=== PATIENT | female | born 1980 | race Two or more races ===

== ENCOUNTER 2017-10-08 14:22 | Emergency (ER) | payer OTHER | END 2017-10-08 15:57 | disposition home or self-care (01) | LOC: ER 14:22 | DX: J02.9 Acute pharyngitis, unspecified (principal) | CPT/HCPCS: 99283 ==

== ENCOUNTER 2020-01-21 06:10 | Emergency (ER) | payer BC, OTHER ==
[~2020-01-21] VITALS: Ht 152.4 cm; Wt 55.1 kg
[~2020-01-21 06:10] MED LIST: AMOX500C PO
[2020-01-21 06:38] LABS: BASO # 0.1 x10^3/uL (0.0-0.2); BASO % 1 % (0-3); EOS # 0.1 x10^3/uL (0.0-0.7); EOS % 1 % (0-3); HEMATOCRIT 38.8 % (36.0-47.0); LYMPH # 2.3 x10^3/uL (1.0-4.8); LYMPH % 28 % (24-48); MEAN CORPUSCULAR HEMOGLOBIN 30 pg (25-35); MEAN CORPUSCULAR HGB CONC 33 g/dL (31-37); MEAN CORPUSCULAR VOLUME 91 fL (79-100); MONO # 0.6 x10^3/uL (0.0-1.1); MONO % 7 % (0-9); NEUT % 63 % (31-73); PLATELET COUNT 201 x10^3/uL (140-400); RED BLOOD COUNT 4.27 x10^6/uL (3.50-5.40); RED CELL DISTRIBUTION WIDTH 13.6 % (11.5-14.5); WHITE BLOOD COUNT 7.9 x10^3/uL (4.0-11.0)
[2020-01-21 06:53] LABS: ALBUMIN/GLOBULIN RATIO 1.1 (1.0-1.7); CALCIUM 8.3 mg/dL (8.5-10.1); GFR 61.1; TOTAL BILIRUBIN 0.4 mg/dL (0.2-1.0); TOTAL PROTEIN 7.7 g/dL (6.4-8.2)
[2020-01-21 06:57] LABS: BILIRUBIN,URINE NEGATIVE (NEG); CLARITY,URINE CLEAR; COLOR,URINE YELLOW; NITRITE,URINE NEGATIVE (NEG); PH,URINE 5.5 (<5.0-8.0); PROTEIN,URINE NEGATIVE (NEG-TRACE); UROBILINOGEN,URINE 0.2 mg/dL (0.2 mg/dL)
[2020-01-21 06:58] LABS: PREG TEST PT QUAL NEGATIVE (NEG)
[2020-01-21 07:06] LABS: PROTHROMBIN TIME PATIENT 14.1 SEC (11.7-14.0)
--- NOTE | 2020-01-21 07:07 | PHYS DOC ---
Past Medical History Past Medical History: No Pertinent History Past Surgical History: No Surgical History Smoking Status: Never Smoker Alcohol Use: None Drug Use: None General Adult EDM: Chief Complaint: HEMATEMESIS/VOMITING BLOOD HPI: HPI: Patient is a 39 year old female who presents with hemoptysis. Patient states that this morning she woke up and ate rice and pork. She suddenly had bloody vomit. This happened 1 time. She is never had this before. She denies any trauma, recent illness, alcohol abuse. She now feels like there is something in her neck. She did not feel like this prior to vomiting. She denies any abdominal pain, diarrhea, melena, syncope, shortness of breath, chest pain. Review of Systems: Review of Systems: General: Denies fever, chills, sweats, fatigue Eyes: Denies drainage, blurred vision HENT: Denies rhinorrhea, sore throat Respiratory: Denies cough, shortness of breath, wheezing Cardiac: Denies edema, palpitations, chest pain GI: Denies abdominal pain, nausea. Reports hemoptysis MSK: Denies back pain, neck pain Skin: Denies rash, jaundice Neuro: Denies headache, dizziness Psychiatric: Denies SI/HI Heart Score: Risk Factors: Risk Factors: DM, Current or recent (<one month) smoker, HTN, HLP, family history of CAD, obesity. Risk Scores: Score 0 - 3: 2.5% MACE over next 6 weeks - Discharge Home Score 4 - 6: 20.3% MACE over next 6 weeks - Admit for Clinical Observation Score 7 - 10: 72.7% MACE over next 6 weeks - Early Invasive Strategies Allergies: Allergies: Allergies Coded Allergies Type Severity Reaction Last Updated Verified No Known Drug Allergies 01/21/20 No Physical Exam: PE: Constitutional: Well developed, well nourished, Cooperative, NAD, non-toxic appearing HEENT: Normocephalic, atraumatic, oropharynx moist, EOMI, PERRL, no drainage from eyes, normal conjunctiva Neck: Supple, normal range of motion, no stridor Cardiovascular: RRR, 2+ radial pulses bilaterally, no edema Respiratory: CTA bilaterally, no respiratory distress, no wheezing/crackles Abdomen: Soft, nontender, nondistended, no masses Skin: Warm, dry, intact Extremities: No obvious deformities Neurologic: Alert and Oriented x3, motor and sensory function grossly normal, no focal deficits Psychologic: Normal affect, normal judgment, normal mood. No SI/HI Current Patient Data: Labs: Laboratory Tests Test 01/21/20 06:33 01/21/20 06:49 White Blood Count 7.9 x10^3/uL (4.0-11.0) Red Blood Count 4.27 x10^6/uL (3.50-5.40) Hemoglobin 13.0 g/dL (12.0-15.5) Hematocrit 38.8 % (36.0-47.0) Mean Corpuscular Volume 91 fL (79-100) Mean Corpuscular Hemoglobin 30 pg (25-35) Mean Corpuscular Hemoglobin Concent 33 g/dL (31-37) Red Cell Distribution Width 13.6 % (11.5-14.5) Platelet Count 201 x10^3/uL (140-400) Neutrophils (%) (Auto) 63 % (31-73) Lymphocytes (%) (Auto) 28 % (24-48) Monocytes (%) (Auto) 7 % (0-9) Eosinophils (%) (Auto) 1 % (0-3) Basophils (%) (Auto) 1 % (0-3) Neutrophils # (Auto) 5.0 x10^3/uL (1.8-7.7) Lymphocytes # (Auto) 2.3 x10^3/uL (1.0-4.8) Monocytes # (Auto) 0.6 x10^3/uL (0.0-1.1) Eosinophils # (Auto) 0.1 x10^3/uL (0.0-0.7) Basophils # (Auto) 0.1 x10^3/uL (0.0-0.2) Sodium Level 142 mmol/L (136-145) Potassium Level 3.0 mmol/L (3.5-5.1) L Chloride Level 104 mmol/L (98-107) Carbon Dioxide Level 30 mmol/L (21-32) Anion Gap 8 (6-14) Blood Urea Nitrogen 16 mg/dL (7-20) Creatinine 1.0 mg/dL (0.6-1.0) Estimated GFR (Cockcroft-Gault) 61.1 BUN/Creatinine Ratio 16 (6-20) Glucose Level 116 mg/dL (70-99) H Calcium Level 8.3 mg/dL (8.5-10.1) L Total Bilirubin 0.4 mg/dL (0.2-1.0) Aspartate Amino Transferase (AST) 15 U/L (15-37) Alanine Aminotransferase (ALT) 23 U/L (14-59) Alkaline Phosphatase 76 U/L (46-116) Total Protein 7.7 g/dL (6.4-8.2) Albumin 4.0 g/dL (3.4-5.0) Albumin/Globulin Ratio 1.1 (1.0-1.7) Lipase 127 U/L (73-393) Serum Test, Qualitative Negative (NEG) Ethyl Alcohol Level < 10 mg/dL (0-10) POC Urine HCG, Qualitative Hcg negative (Negative) Laboratory Tests 01/21/20 06:33 Laboratory Tests 01/21/20 06:33 Vital Signs: Vital Signs Date Time Temp Pulse Resp B/P (MAP) Pulse Ox O2 Delivery O2 Flow Rate FiO2 01/21/20 06:21 99.1 78 14 115/66 (82) 100 Room Air 99.1 EKG: EKG: [] Radiology/Procedures: Radiology/Procedures: [] Course & Med Decision Making: Course & Med Decision Making Pertinent Labs and Imaging studies reviewed. (See chart for details) Patient is a 39-year-old previously healthy well-appearing female who presents to the emergency room after having a single episode of hemoptysis. Patient does not have an alcohol abuse history making varices unlikely. She does have a globus feeling in her throat making it possible that she has a foreign body which could have caused the vomiting. X-ray will be ordered. Basic labs including CBC, BMP, coags, lipase, test will be ordered to help determine other possible causes of her hemoptysis. At time of examination patient is very well-appearing with benign exam. She does not have any stridor, she is not vomiting, and she does not have any distress. XR was negative for foreign body. CT neck and abdomen were ordered and were normal. Patient did not have any further vomiting in the ED. She likely has gastritis or a small junior cooper tear. She was given a GI cocktail which she tolerated well. Will place her on Pepcid. Patient's test results and vitals while in the ED were fully reviewed and discussed with the patient. Patient is stable and at this time does not need admission to the hospital. We have discussed strict return precautions and the importance of following up with their Primary Care Physician. Patient stated understanding and was given an opportunity to ask any questions. [place] Disclaimer: Dragon Disclaimer: This electronic medical record was generated, in whole or in part, using a voice recognition dictation system. Departure Departure Impression: Primary Impression: Hematemesis of unknown cause Disposition: 01 HOME, SELF-CARE Referrals: NO PCP (PCP) Scripts Famotidine (PEPCID) 20 Mg Tablet 20 MG PO BID, #30 TAB Prov: PREET SR MD 01/21/20 PREET SR MD Jan 21, 2020 07:07
[2020-01-21 07:12] LABS: BACTERIA,URINE FEW /HPF (0-FEW); RBC,URINE 0 /HPF (0-2); SQUAMOUS EPITHELIAL CELL,UR MOD /LPF
--- NOTE | 2020-01-21 08:00 | RAD ---
Study: CR NECK SOFT TISSUE Indication: Hematemesis. Foreign body evaluation. Comparison: None. Findings: Mineralization in the region of the thyroid cartilage favored anatomic as opposed to a retained foreign body. The visualized airway is normally aerated. Normal thickness of the epiglottis. Unremarkable prevertebral soft tissues. The adequately assessed osseous structures are grossly intact. Impression: No radiographic evidence for a retained foreign body within the visualized airway. Electronically signed by: JASE LOPEZ MD (01/21/2020 7:57 AM) [id number]
[2020-01-21] MEDS ORDERED: IOHEXOL 350 MG/ML 100 ML VIAL. IV ONE (08:30)
[2020-01-21] MEDS ORDERED: CONTRAST GIVEN. MC PRN (08:45)
--- NOTE | 2020-01-21 09:26 | RAD ---
CT study of the soft tissues of the neck without contrast Clinical indications: Hematemesis. Globus feeling in neck. TECHNIQUE: Noncontrast helical CT scanning of the soft tissues of the neck was performed. Multiplanar 2-D reconstructions were generated. PQRS compliance Statement One or more of the following individualized dose reduction techniques were utilized for this study: 1. Automated exposure control 2. Adjustment of the mA and/or kV according to patient size 3. Use of iterative reconstruction technique COMPARISON: No previous CT available. FINDINGS: No enlarged cervical lymphadenopathy is evident. No soft tissue mass is seen. No soft tissue abscess is seen. No prevertebral soft tissue swelling or parapharyngeal soft tissue thickening is seen. The thyroid gland is unremarkable. The true and false vocal cords and epiglottis and aryepiglottic folds and preepiglottic fat space are normal. The parotid and submandibular salivary glands are unremarkable. No radiopaque foreign body is evident. No opacification or air-fluid levels of the paranasal sinuses/middle ear cavities/mastoid sinuses is seen. There is a round well-defined radiolucent lesion of the right side of the posterior aspect of the T1 vertebral body with sclerotic borders. This most likely represents a cyst or hemangioma. Dental caries is evident. No lung apical infiltrate is seen. IMPRESSION: No soft tissue mass or enlarged cervical lymphadenopathy is evident. Dental caries. Electronically signed by: Jus Tierney MD (01/21/2020 9:23 AM) [id number]
--- NOTE | 2020-01-21 09:29 | RAD ---
PQRS Compliance Statement: One or more of the following individualized dose reduction techniques were utilized for this examination: 1. Automated exposure control 2. Adjustment of the mA and/or kV according to patient size 3. Use of iterative reconstruction technique CT abdomen/pelvis with contrast 01/21/2020 8:11 AM INDICATION: New onset hematemesis COMPARISON: None available TECHNIQUE: Multiple axial CT images of the abdomen and pelvis were obtained after the intravenous administration of nonionic contrast. Maximum intensity projection images are provided. Coronal and sagittal reformats are provided. FINDINGS: Visualized portions of the lung bases are clear. Heart size is within normal limits. No suspicious hepatic masses are identified. Liver is homogeneous in enhancement. Spleen, bilateral adrenal glands, and pancreas are normal in appearance. Gallbladder is present without adjacent inflammatory changes. The abdominal aorta is normal in course and caliber. Calcified duodenal artery is normal in caliber. No suspicious bone formation is identified involving the gastric antrum or first portion of the duodenum. There are no pathologically enlarged lymph nodes in the abdomen and pelvis. There is no abdominal free fluid. There is no free intraperitoneal air. Small and large bowel are normal in caliber. There is no evidence for bowel obstruction. There are no pericolonic inflammatory changes. A normal, nondilated appendix is visualized without adjacent inflammatory changes. No definite findings to suggest acute gastrointestinal hemorrhage in the upper gastric intestinal tract. No definite CT findings to suggest angiodysplasia. The kidneys enhance symmetrically. There is no suspicious renal mass. There is no hydronephrosis. There are no suspected calculi within the kidneys, ureters or urinary bladder. IUD is present within the uterus. Uterus and adnexa are otherwise normal by CT. Urinary bladder is within normal limits given degree of distention. No suspicious osseous abnormality is identified. IMPRESSION: 1. No evidence for bowel obstruction or inflammation, specifically involving the upper gastrointestinal tract. 2. Abdominal aorta is normal in course and caliber. No abdominal aortic aneurysm or dissection. Electronically signed by: Gia Guallpa MD (01/21/2020 9:27 AM) [place] [id number]
[2020-01-21] MEDS ORDERED: FAMO-63 PO (09:45)
[2020-01-21 10:00] VITALS: BP 102/63
[2020-01-21] MEDS ORDERED: LIDO:MAALOX 1:1 20 ML SINGLE DOSE. SWSW ONE (10:15)
[2020-01-21] MEDS ORDERED: FAMOTIDINE 20 MG TABLET. PO ONE (10:15)
== END 2020-01-21 10:34 | disposition home or self-care (01) ==
LOC: ER 06:10
DX: K92.0 Hematemesis (principal)
CPT/HCPCS: 36415; 70360; 70490; 74174; 80053; 81001; 81025; 83690; 84703; 85025; 85610; 85730; 99285; G0480; Q9967